=== PATIENT | male | born 2000 | race Caucasian/White ===

== ENCOUNTER 2018-09-02 15:31 | Emergency (ER) | payer BC ==
[2018-09-02 15:37] VITALS: BP 112/73
--- NOTE | 2018-09-02 16:13 | EDPHY ---
General Time Seen by Provider: 09/02/18 16:01 Narrative: CLINICAL IMPRESSION: Minor left 4th finger crush injury ASSESSMENT/PLAN: 17-year-old male presents to the emergency department with contusion to the distal aspect of the left 4th finger after the finger was slammed in a door yesterday. Distal neurovascular in 2 point discrimination intact. No open wounds. X-rays negative for fracture and foreign body. Full range of motion of the finger and hand. Aluminum finger splint provided for comfort, rice treatment discussed, warning signs for return to ED sooner outlined and discharge. DIFFERENTIAL DX: Differential includes but not limited to acute fracture, strain/sprain, joint dislocation, soft tissue contusion ED PROCEDURES: Procedure: Splint placement. A aluminum finger splint was applied to left 4th by ct scan technologist, supervised by myself. After application of the splint I returned and re-examined the patient. The splint was adequately immobilizing the joint and distal to the splint the patient's circulation and sensation was intact. ED COURSE: Review of x-rays by myself shows no evidence of fracture CHIEF COMPLAINT: Left 4th finger pain HPI: 17-year-old male presents to the emergency department after he accidentally slammed his left 4th finger in a door yesterday. He states he had open the door to get the finger out. He noted persistent swelling and pain today. Full range of motion. No reported numbness or tingling. Vaccines up-to-date. Mild bruising under the nail. He is right-hand dominant. PAST MEDICAL HISTORY: None reported Pertinent Past Surgical History: None reported Social History: Otherwise healthy, student at [employer] REVIEW OF SYSTEMS: All other systems negative Constitutional: No fever, no chills Musculoskeletal: No deformity, + joint pain Skin: No rashes, color change or open wounds. Neurological: No sensory loss or weakness. PHYSICAL EXAM: General Appearance: Alert, oriented, appropriate for age, cooperative, NAD, well hydrated, non-toxic appearing, VSS, no hypoxia. Neurological: Alert and oriented x 3, normal sensation and strength of extremities Skin: Warm, dry, no rashes, no nodules on palpation. Contusion to the volar aspect of the left 4th finger Musculoskeletal: Full range of motion of left hand and all fingers. Distal 2 point discrimination intact. MEDICAL DECISION MAKING: Patient was seen independently. Secondary supervising physician at time of evaluation was Dr. Cerna. Diagnosis: Minor left 4th finger crush injury. New, requires workup Summary: See assessment and plan for summary of ED visit Independent visualization of images, tracing, or specimens yes. Patient Progress: Improved, stable for discharge. - Diagnostics Imaging Results: Imaging Impressions Finger X-Ray 09/02/18 15:42 Impression: 1. No acute osseous abnormality seen left fourth digit. - History Smoking Status: Never smoked - Objective Vital Signs: Initial Vital Signs Temperature (C) 37.1 C 09/02/18 15:34 Heart Rate 71 09/02/18 15:34 Respiratory Rate 14 09/02/18 15:34 Blood Pressure 112/73 09/02/18 15:34 O2 Sat (%) 96 09/02/18 15:34 O2 Delivery Mode Room Air Allergies/Adverse Reactions: No Known Allergies Allergy (Unverified 09/02/18 15:37) Home Medications: Medication Instructions Recorded Concert 09/02/18 Departure - Departure Disposition: Home, Routine, Self-Care Clinical Impression: Finger contusion Qualifiers: Encounter type: initial encounter Finger: ring finger Damage to nail status: without damage Laterality: left Qualified Code(s): S60.042A - Contusion of left ring finger without damage to nail, initial encounter Condition: Good Instructions: Hematoma (ED) Additional Instructions: DISCHARGE INSTRUCTIONS FROM YOUR DOCTOR Thank you for visiting our emergency department today. You were treated by a physician assistant brand manager today and your case was reviewed with our ED Attending physician. Please keep in mind that discharge from the emergency department does not mean that there is nothing wrong - it simply means that we have not identified an emergency condition that requires further evaluation or treatment in the hospital. You should always plan to follow up with primary care for re- evaluation of your condition in the next 2-3 days. If you have been referred to a specialist, please call as soon as possible (today or tomorrow) to schedule your follow up appointment at the appropriate time. X-RAYS OF YOUR HAND SHOW NO EVIDENCE OF FRACTURE. PLEASE USE THE ALUMINUM FINGER SPLINT FOR COMFORT. ELEVATE THE FINGER. USE TYLENOL OR IBUPROFEN. ICE INTERMITTENTLY. RETURN TO ED FOR WORSENING PAIN, LOSS OF SENSATION TO HAND OR FINGER, SIGNIFICANT SWELLING TO HAND OR FINGER OR ANY OTHER CONCERN. People present with illnesses and injuries in different ways, and it is always possible that we have missed something. You may always return for re-evaluation if symptoms worsen or if they are not improving or if you develop new/different symptoms. Again, thank you for choosing our emergency department. We hope that you feel better. Referrals: NONE *PRIMARY CARE P,. [Primary Care Provider] - As per Instructions [facility],. [Clinic] - 2-3 days, call for appt.
== END 2018-09-02 16:28 | disposition home or self-care (01) ==
DX: S60.042A Contusion of left ring finger without damage to nail, initial encounter (principal); W23.1XXA Caught, crushed, jammed, or pinched between stationary objects, initial encounter
CPT/HCPCS: L3925